=== PATIENT | female | born 1985 | race Caucasian/White ===

== ENCOUNTER 2020-02-07 16:25 | Emergency (ER) | payer OTHER ==
[~2020-02-07] VITALS: Ht 165.1 cm; Wt 115.6 kg
[2020-02-07] MEDS ORDERED: NS 1,000 ML IV SCH (16:53)
[2020-02-07] MEDS ORDERED: MORPHINE 4 MG/ML 1ML VIAL/SYRINGE (J2270) IV ONE (17:00)
[2020-02-07] MEDS ORDERED: ONDANSETRON 4MG/2ML VIAL IV ONE ×2 (17:00→21:30)
[2020-02-07 17:39] LABS: BASO % 0.4 % (0.0-1.0); EOS # 0.3 10^3/uL (0.0-0.5); EOS % 2.8 % (0.0-3.0); HEMATOCRIT 43.7 % (36.0-47.0); HEMOGLOBIN 14.3 g/dl (12.0-15.5); LYMPH # 3.1 10^3/uL (1.5-5.0); LYMPH % 31.7 % (24.0-44.0); MEAN CORPUSCULAR HGB CONC 32.7 g/dl (32.0-36.5); MEAN CORPUSCULAR VOLUME 91.8 fl (80.0-96.0); MONO # 0.5 10^3/uL (0.0-0.8); MONO % 5.3 % (0.0-5.0); NEUTROPHILS # 5.8 10^3/uL (1.5-8.5); NEUTROPHILS % 59.5 % (36.0-66.0); PLATELET COUNT, AUTOMATED 313 10^3/uL (150-450); RED BLOOD COUNT 4.76 10^6/uL (4.00-5.40); WHITE BLOOD COUNT 9.7 10^3/uL (4.0-10.0)
[2020-02-07] MEDS ORDERED: PANTOPRAZOLE 40MG VIAL (C9113 PER 1) IV ONE (17:45)
[2020-02-07] MEDS ORDERED: GI COCKTAIL 50ML BTL(HYOSCYAMINE/MAALOX/LIDOCAINE VISCOUS)(1:3:1) PO ONE (17:45)
[2020-02-07 18:01] LABS: HCG, SERUM QUALITATIVE NEGATIVE (NEGATIVE)
[2020-02-07 18:02] LABS: ERYTHROCYTE SEDIMENTATION RATE 10 mm/hr (0-20)
[2020-02-07 18:03] LABS: ALBUMIN 3.3 GM/DL (3.2-5.2); ALT/SGPT 32 U/L (12-78); BILIRUBIN,DIRECT < 0.1 MG/DL (0.0-0.2); BILIRUBIN,TOTAL 0.2 MG/DL (0.2-1.0); BLOOD UREA NITROGEN 12 MG/DL (7-18); CALCIUM LEVEL 8.7 MG/DL (8.5-10.1); CARBON DIOXIDE LEVEL 24 MEQ/L (21-32); CHLORIDE LEVEL 112 MEQ/L (98-107); CREATININE FOR GFR 0.65 MG/DL (0.55-1.30); GLOMERULAR FILTRATION RATE > 60.0 (>60); GLUCOSE, FASTING 80 MG/DL (70-100); LIPASE 88 U/L (73-393); POTASSIUM SERUM 3.7 MEQ/L (3.5-5.1); SODIUM LEVEL 141 MEQ/L (136-145); TOTAL PROTEIN 7.3 GM/DL (6.4-8.2)
[2020-02-07] MEDS ORDERED: HYDROMORPHONE HCL 0.5 MG/ 0.5 ML SYRINGE (J1170 PER 1) IV ONE ×2 (18:15→21:30)
[2020-02-07] MEDS: GASTROGRAFIN SOLUTION 30ML PO SCH ×2 (18:57→19:31)
[2020-02-07] MEDS ORDERED: HYDROMORPHONE HCL 0.5 MG/ 0.5 ML SYRINGE (J1170 PER 1) IV PRN (19:45)
[2020-02-07] MEDS ORDERED: ISOVUE-370 76% 100ML VIAL As Ordered ONE (20:06)
--- NOTE | 2020-02-07 20:44 | REPVR ---
PROCEDURE INFORMATION: Exam: CT Abdomen And Pelvis With Contrast Exam date and time: 02/07/2020 8:18 PM Age: 34 years old Clinical indication: Abdominal pain; Localized; Upper; Additional info: Upper abd pain TECHNIQUE: Imaging protocol: Computed tomography of the abdomen and pelvis with intravenous contrast. Radiation optimization: All CT scans at this facility use at least one of these dose optimization techniques: automated exposure control; mA and/or kV adjustment per patient size (includes targeted exams where dose is matched to clinical indication); or iterative reconstruction. Contrast material: ISOVUE 370; Contrast volume: 100 ml; Contrast route: INTRAVENOUS (IV); COMPARISON: No relevant prior studies available. FINDINGS: Liver: There is a diffuse decrease in hepatic parenchymal density, consistent with steatosis. Gallbladder and bile ducts: Normal. No calcified stones. No ductal dilation. Pancreas: Normal. No ductal dilation. Spleen: Normal. No splenomegaly. Adrenal glands: Normal. No mass. Kidneys and ureters: Normal. No hydronephrosis. Stomach and bowel: Abnormal thickening and enhancement of the ileum extending to the terminal ileum, findings consistent with inflammatory bowel disease and less likely infection or severe localized enteritis. No abscess demonstrated. There are 2 small inflamed bowel loops abutting 1 another and right lower quadrant with absent intervening fat plane, finding which may indicate the presence of acute bowel and possible developing fistula. Surgical clips in the right lower quadrant. Appendix: No evidence of appendicitis. Intraperitoneal space: Unremarkable. No free air. No significant fluid collection. Vasculature: Unremarkable. No abdominal aortic aneurysm. Lymph nodes: Unremarkable. No enlarged lymph nodes. Urinary bladder: Unremarkable as visualized. Reproductive: Unremarkable as visualized. Bones/joints: Unremarkable. No acute fracture. Soft tissues: Status post mesh repair of an anterior abdominal wall hernia. Recurrent upper abdominal fatty hernia demonstrated. Small paraumbilical hernias demonstrated. Infraumbilical rectus sheath diastasis with a small left paracentral fatty hernia. IMPRESSION: 1. There is a diffuse decrease in hepatic parenchymal density, consistent with steatosis. 2. Abnormal loop of ileum in the right lower quadrant as described above most likely representing inflammatory bowel disease and less likely infection or severe enteritis. Possible developing fistula. No abscess. Electronically signed by: Lokesh Adams On 02/07/2020 20:44:14 PM
[2020-02-07] MEDS ORDERED: PRED10TA2 PO (21:28)
[2020-02-07] MEDS ORDERED: PERC5TAB12 PO (21:28)
[2020-02-07] MEDS ORDERED: ONDA4TAB6 PO (21:28)
[2020-02-07] MEDS ORDERED: predniSONE 20 MG TAB PO ONE (21:30)
[2020-02-07] MEDS ORDERED: OXYCODONE/APAP 5MG/325MG(BULK FOR ED) 1 TABLET PO ONE (21:30)
[2020-02-07] MEDS ORDERED: LIAL1.2T PO (22:17)
[2020-02-07 22:45] VITALS: BP 106/68
--- NOTE | 2020-02-09 14:04 | ED PDOC ---
Post-Departure Follow-Up radiology rpor tfaxed to Samantha Orantes MD Feb 09, 2020 14:04
== END 2020-02-07 23:01 | disposition home or self-care (01) ==
LOC: M ED 16:25
DX: K50.90 Crohn's disease, unspecified, without complications (principal); F17.200 Nicotine dependence, unspecified, uncomplicated; Z88.0 Allergy status to penicillin; Z88.8 Allergy status to other drugs, medicaments and biological substances; Z88.5 Allergy status to narcotic agent; Z86.718 Personal history of other venous thrombosis and embolism; Z86.711 Personal history of pulmonary embolism
CPT/HCPCS: 74177; 80048; 80076; 83690; 84703; 85025; 85652; 86140; 93041; 96374; 96375; 96376; 99285; C9113; J1170; J2270; J2405; Q9963; Q9967

== ENCOUNTER 2021-02-16 00:19 | Emergency (ER) | payer OTHER ==
[~2021-02-16] VITALS: Ht 165.1 cm; Wt 118.2 kg
[~2021-02-16 00:19] MED LIST: LIAL1.2T PO; ONDA4TAB6 PO; PERC5TAB12 PO; PRED10TA2 PO
[2021-02-16 03:38] LABS: BASO % 0.4 % (0.0-1.0); EOS # 0.2 10^3/uL (0.0-0.5); EOS % 2.1 % (0.0-3.0); HEMATOCRIT 41.8 % (36.0-47.0); HEMOGLOBIN 13.5 g/dl (12.0-15.5); LYMPH % 26.8 % (24.0-44.0); MEAN CORPUSCULAR HEMOGLOBIN 29.9 pg (27.0-33.0); MEAN CORPUSCULAR HGB CONC 32.3 g/dl (32.0-36.5); MEAN CORPUSCULAR VOLUME 92.7 fl (80.0-96.0); MONO # 0.7 10^3/uL (0.0-0.8); MONO % 6.2 % (2.0-8.0); NEUTROPHILS # 7.2 10^3/uL (1.5-8.5); NEUTROPHILS % 64.1 % (36.0-66.0); PLATELET COUNT, AUTOMATED 324 10^3/uL (150-450); RED BLOOD COUNT 4.51 10^6/uL (4.00-5.40); WHITE BLOOD COUNT 11.2 10^3/uL (4.0-10.0)
[2021-02-16 04:10] LABS: ALBUMIN 3.2 GM/DL (3.2-5.2); ALT/SGPT 16 U/L (12-78); BILIRUBIN,DIRECT 0.1 MG/DL (0.0-0.2); BILIRUBIN,TOTAL 0.3 MG/DL (0.2-1.0); BLOOD UREA NITROGEN 10 MG/DL (7-18); CALCIUM LEVEL 8.5 MG/DL (8.5-10.1); CARBON DIOXIDE LEVEL 22 MEQ/L (21-32); CHLORIDE LEVEL 110 MEQ/L (98-107); CREATININE FOR GFR 0.61 MG/DL (0.55-1.30); GLOMERULAR FILTRATION RATE > 60.0 (>60); GLUCOSE, FASTING 84 MG/DL (70-100); LIPASE 59 U/L (73-393); POTASSIUM SERUM 3.8 MEQ/L (3.5-5.1); SODIUM LEVEL 138 MEQ/L (136-145); TOTAL PROTEIN 6.9 GM/DL (6.4-8.2)
[2021-02-16] MEDS ORDERED: MORPHINE 4 MG/ML 1ML VIAL/SYRINGE (J2270) IV ONE ×2 (05:05→06:35)
[2021-02-16] MEDS ORDERED: ONDANSETRON 4MG/2ML VIAL IV ONE ×2 (05:05→06:35)
[2021-02-16] MEDS: GASTROGRAFIN SOLUTION 30ML PO SCH (05:26)
[2021-02-16 05:27] LABS: ERYTHROCYTE SEDIMENTATION RATE 11 mm/hr (0-20)
[2021-02-16 05:30] LABS: C REACTIVE PROTEIN QUANTITATIV < 0.30 MG/DL (0.00-0.30)
[2021-02-16 05:32] LABS: HCG, SERUM QUALITATIVE NEGATIVE (NEGATIVE)
[2021-02-16] MEDS ORDERED: ISOVUE-370 76% 100ML VIAL As Ordered ONE (06:42)
--- NOTE | 2021-02-16 07:57 | REPVR ---
PROCEDURE INFORMATION: Exam: CT Abdomen And Pelvis With Contrast Exam date and time: 02/16/2021 6:56 AM Age: 35 years old Clinical indication: Abdominal pain; Localized; Right upper quadrant (ruq); Additional info: Ruq, rlq pain HX crohns TECHNIQUE: Imaging protocol: Computed tomography of the abdomen and pelvis with contrast. Radiation optimization: All CT scans at this facility use at least one of these dose optimization techniques: automated exposure control; mA and/or kV adjustment per patient size (includes targeted exams where dose is matched to clinical indication); or iterative reconstruction. Contrast material: ISOVUE 370; Contrast volume: 100 ml; Contrast route: INTRAVENOUS (IV); Other contrast: Oral, Gastrographin; COMPARISON: CT ABD/PEL W/IV ORAL CONTRAS 02/07/2020 8:11 PM FINDINGS: Lungs: The visualized lung bases demonstrate mild dependent atelectasis. Liver: The liver is again fatty in density. It appears otherwise unremarkable. Gallbladder and bile ducts: No gallstones are evident, but ultrasound would be more sensitive. No gross biliary ductal dilatation. Pancreas: Normal. No ductal dilation. Spleen: Normal. No splenomegaly. Adrenal glands: Normal. No mass. Kidneys and ureters: Normal. No hydronephrosis. Stomach and bowel: The unopacified small bowel is not significantly distended to suggest obstruction. There is again moderate wall thickening involving some distal loops of small bowel including the terminal ileum, fairly similar in degree and extent, with mildly increased edema of their mesentery. No pneumatosis. There are again some calcifications and possibly sutures along the ileocecal junction. The large bowel is grossly unremarkable in appearance. Appendix: The appendix is not identified, but there are no inflammatory changes in its expected region. Intraperitoneal space: No free air or significant free fluid. Vasculature: Unremarkable. No abdominal aortic aneurysm. Lymph nodes: Unremarkable. No enlarged lymph nodes. Urinary bladder: Unremarkable. Reproductive: No gross adnexal abnormality is apparent, but ultrasound would be more appropriate in this regard. Bones/joints: Bony structures appear unchanged. Soft tissues: There are again operative changes of anterior abdominal wall hernia repair. IMPRESSION: 1. Moderate wall thickening of some distal small bowel loops including the terminal ileum, fairly similar degree and extent as compared with 02/07/2020, with mildly increased edema of their mesentery. Findings again suggest a nonspecific colitis, and are compatible with Crohn disease. 2. Persistent fatty liver. Electronically signed by: Robert Anna On 02/16/2021 07:56:44 AM
[2021-02-16] MEDS ORDERED: PROMETHAZINE INJ 25 MG/ML VIAL (J2550) IV ONE (08:20)
[2021-02-16] MEDS ORDERED: PRED10TA2 PO (08:40)
[2021-02-16] MEDS ORDERED: PERC5TAB12 PO (08:40)
[2021-02-16] MEDS ORDERED: PROM25TA12 PO (08:44)
[2021-02-16] MEDS ORDERED: PERCOCET 5MG/325MG TAB PO ONE (09:00)
[2021-02-16 09:12] VITALS: BP 113/82
== END 2021-02-16 09:13 | disposition home or self-care (01) ==
LOC: M ED 00:19
DX: K50.918 Crohn's disease, unspecified, with other complication (principal); Z88.0 Allergy status to penicillin; Z88.1 Allergy status to other antibiotic agents; Z88.5 Allergy status to narcotic agent; Z88.8 Allergy status to other drugs, medicaments and biological substances; F17.210 Nicotine dependence, cigarettes, uncomplicated
CPT/HCPCS: 74177; 80048; 80076; 83690; 84703; 85025; 85652; 86140; 93041; 94760; 96374; 96375; 96376; 99284; J2270; J2405; Q9963; Q9967

== ENCOUNTER 2021-04-05 01:33 | Emergency (ER) | payer OTHER ==
[~2021-04-05] VITALS: Ht 165.1 cm; Wt 107.8 kg
[~2021-04-05 01:33] MED LIST changes: +PROM25TA12 PO
[2021-04-05] MEDS ORDERED: ALPR2TAB3 PO (01:42)
[2021-04-05 04:17] LABS: BASO % 0.3 % (0.0-1.0); EOS # 0.2 10^3/uL (0.0-0.5); EOS % 1.9 % (0.0-3.0); HEMATOCRIT 40.9 % (36.0-47.0); HEMOGLOBIN 13.1 g/dl (12.0-15.5); LYMPH % 30.8 % (24.0-44.0); MEAN CORPUSCULAR HEMOGLOBIN 29.2 pg (27.0-33.0); MEAN CORPUSCULAR VOLUME 91.3 fl (80.0-96.0); MONO # 0.6 10^3/uL (0.0-0.8); MONO % 5.8 % (2.0-8.0); NEUTROPHILS # 5.9 10^3/uL (1.5-8.5); PLATELET COUNT, AUTOMATED 325 10^3/uL (150-450); RED BLOOD COUNT 4.48 10^6/uL (4.00-5.40); WHITE BLOOD COUNT 9.6 10^3/uL (4.0-10.0)
[2021-04-05] MEDS ORDERED: NS 1,000 ML IV ONE (04:40)
[2021-04-05] MEDS ORDERED: MORPHINE 4 MG/ML 1ML VIAL/SYRINGE (J2270) IV ONE ×2 (04:40→05:40)
[2021-04-05] MEDS ORDERED: ONDANSETRON 4MG/2ML VIAL IV ONE (04:40)
[2021-04-05] MEDS ORDERED: methylPREDNISolone 125MG 2ML VIAL IV ONE (04:40)
[2021-04-05 04:43] LABS: ALT/SGPT 18 U/L (12-78); BILIRUBIN,DIRECT < 0.1 MG/DL (0.0-0.2); BILIRUBIN,TOTAL 0.2 MG/DL (0.2-1.0); BLOOD UREA NITROGEN 8 MG/DL (7-18); CARBON DIOXIDE LEVEL 24 MEQ/L (21-32); CHLORIDE LEVEL 111 MEQ/L (98-107); CREATININE FOR GFR 0.58 MG/DL (0.55-1.30); GLOMERULAR FILTRATION RATE > 60.0 (>60); GLUCOSE, FASTING 81 MG/DL (70-100); LIPASE 87 U/L (73-393); POTASSIUM SERUM 3.3 MEQ/L (3.5-5.1); SODIUM LEVEL 143 MEQ/L (136-145); TOTAL PROTEIN 6.6 GM/DL (6.4-8.2)
[2021-04-05] MEDS ORDERED: POTASSIUM CHLORIDE 10MEQ SR TABLET PO ONE (05:15)
[2021-04-05] MEDS ORDERED: PERC5TAB12 PO (07:04)
[2021-04-05] MEDS ORDERED: PRED20TA PO (07:04)
[2021-04-05] MEDS ORDERED: ONDA4TAB6 PO (07:05)
[2021-04-05 07:26] VITALS: BP 135/95
== END 2021-04-05 07:28 | disposition home or self-care (01) ==
LOC: M ED 01:33
DX: K50.90 Crohn's disease, unspecified, without complications (principal); R11.0 Nausea; E87.6 Hypokalemia; M79.7 Fibromyalgia; F17.200 Nicotine dependence, unspecified, uncomplicated; Z88.0 Allergy status to penicillin; Z88.1 Allergy status to other antibiotic agents; Z88.6 Allergy status to analgesic agent; Z79.899 Other long term (current) drug therapy
CPT/HCPCS: 80048; 80076; 83690; 85025; 86140; 93041; 96361; 96374; 96375; 96376; 99284; J2270; J2405; J2930